=== PATIENT | male | born 1955 | race Two or more races ===

== ENCOUNTER 2024-11-29 20:41 | Inpatient (IN) | payer MEDICARE, OTHER ==
[~2024-11-29] VITALS: Ht 162.6 cm; Wt 68.0 kg
[2024-11-29 21:41] LABS: BASOPHILS % (AUTO) 0.3 % (0.0-2.0); EOSINOPHILS # (AUTO) 0.2 K/uL (0.0-0.7); EOSINOPHILS % (AUTO) 2.8 % (0.0-6.0); HEMATOCRIT 37 % (39-51); HEMOGLOBIN 12.8 g/dL (13.5-17.5); LYMPHOCYTES # (AUTO) 1.6 K/uL (0.8-4.8); LYMPHOCYTES % (AUTO) 30.6 % (20.0-44.0); MEAN CORPUSCULAR HEMOGLOBIN 31 PG (26.0-33.0); MEAN CORPUSCULAR HGB CONC 34 g/dl (31.0-36.0); MEAN CORPUSCULAR VOLUME 91 fL (80-96); MONOCYTES # (AUTO) 0.5 K/uL (0.1-1.30); MONOCYTES % (AUTO) 9.9 % (2.0-12.0); NEUTROPHILS % (AUTO) 56.4 % (43.0-81.0); PLATELET COUNT (AUTO) 163 K/uL (150-450); RED BLOOD CELL COUNT(AUTO) 4.08 MIL/uL (4.5-6.0); WHITE BLOOD COUNT (AUTO) 5.3 K/uL (4.3-11.0)
[2024-11-29 21:48] LABS: APPEARANCE,URINE CLEAR (CLEAR); BILIRUBIN,URINE NEGATIVE (NEGATIVE); BLOOD, URINE NEGATIVE Ery/uL (NEGATIVE); COLOR,URINE YELLOW (YELLOW); KETONES,URINE NEGATIVE (NEGATIVE); LEUKOCYTE ESTERASE ,URINE NEGATIVE (NEGATIVE); NITRITE, URINE NEGATIVE (NEGATIVE); PROTEIN,URINE NEGATIVE (NEGATIVE); UGLUCOSE NEGATIVE (NEGATIVE); UROBILINOGEN,URINE 0.2 EU/dL (0.2)
[2024-11-29 22:03] LABS: AMPHETAMINE, URINE NEGATIVE (NEGATIVE); BARBITURATE, URINE NEGATIVE (NEGATIVE); BENZODIAZEPINE, URINE NEGATIVE (NEGATIVE); CANNABINOID, URINE NEGATIVE (NEGATIVE); COCCAINE, URINE NEGATIVE (NEGATIVE); OPIATE, URINE NEGATIVE (NEGATIVE); PHENCYCLIDINE SCREEN,URINE NEGATIVE (NEGATIVE)
[2024-11-29 22:05] LABS: ALANINE AMINOTRANSFERASE 22 U/L (12-78); ALBUMIN 2.9 g/dL (3.4-5.0); ALCOHOL, BLOOD < 3 mg/dL (0-10); ALKALINE PHOSPHATASE 92 U/L (46-116); ASPARTATE AMINOTRANSFERASE 15 U/L (15-37); BILIRUBIN,DIRECT 0.1 mg/dL (0.0-0.2); BILIRUBIN,TOTAL 0.2 mg/dL (0.2-1.0); CALCIUM, SERUM 8.2 mg/dL (8.5-10.1); CARBON DIOXIDE 25 mmol/L (21-32); CHLORIDE 101 mmol/L (98-107); CREATININE 1.1 mg/dL (0.6-1.3); GLUCOSE 174 mg/dL (74-106); POTASSIUM 3.9 mmol/L (3.5-5.1); SALICYLATE 0.8 mg/dL (2.8-20.0); SODIUM SERUM 136 mmol/L (136-145); TOTAL PROTEIN, SERUM 6.3 g/dL (6.4-8.2); UREA NITROGEN, BLOOD 28 mg/dL (7-18)
[2024-11-29 22:06] LABS: ACETAMINOPHEN 0 ug/ml (10-30)
[2024-11-29 23:01] VITALS: O2SAT 99
[2024-11-30] MEDS ORDERED: CLOP75TA15 PO (00:30)
[2024-11-30] MEDS ORDERED: HYDR100T27 PO (00:30)
[2024-11-30] MEDS ORDERED: AMLO-212 PO (00:30)
[2024-11-30] MEDS ORDERED: GABA-532 PO (00:30)
[2024-11-30] MEDS ORDERED: BUSP5TAB3 PO (00:30)
[2024-11-30] MEDS ORDERED: LEVE500T20 PO (00:30)
[2024-11-30] MEDS ORDERED: CLON0.5T PO (00:30)
[2024-11-30] MEDS ORDERED: METO50TA16 PO (00:32)
[2024-11-30] MEDS ORDERED: INSU100V42 SQ (04:49)
[2024-11-30] MEDS ORDERED: INSU100V42 ×2 (04:49→04:54)
[2024-11-30] MEDS ORDERED: MAG HYDROX/AL HYDROX/SIMETH 30 ML UDC PO PRN (05:00)
[2024-11-30] MEDS ORDERED: ZOLPIDEM TARTRATE 5 MG TABLET PO PRN (05:00)
[2024-11-30] MEDS: BLOOD SUGAR DIAGNOSTIC 1 EACH STRIP IN ONE (05:48)
[2024-11-30 06:10] VITALS: BP 160/72; TEMP 98.6
[2024-11-30 07:48] LABS: BASOPHILS % (AUTO) 0.3 % (0.0-2.0); EOSINOPHILS # (AUTO) 0.1 K/uL (0.0-0.7); EOSINOPHILS % (AUTO) 1.9 % (0.0-6.0); HEMATOCRIT 42 % (39-51); HEMOGLOBIN 14.3 g/dL (13.5-17.5); LYMPHOCYTES # (AUTO) 1.1 K/uL (0.8-4.8); LYMPHOCYTES % (AUTO) 27.1 % (20.0-44.0); MEAN CORPUSCULAR HEMOGLOBIN 31 PG (26.0-33.0); MEAN CORPUSCULAR HGB CONC 34 g/dl (31.0-36.0); MEAN CORPUSCULAR VOLUME 90 fL (80-96); MONOCYTES # (AUTO) 0.4 K/uL (0.1-1.30); MONOCYTES % (AUTO) 8.8 % (2.0-12.0); NEUTROPHILS # (AUTO) 2.5 K/uL (1.8-8.9); NEUTROPHILS % (AUTO) 61.9 % (43.0-81.0); PLATELET COUNT (AUTO) 180 K/uL (150-450); RED BLOOD CELL COUNT(AUTO) 4.69 MIL/uL (4.5-6.0); WHITE BLOOD COUNT (AUTO) 4.1 K/uL (4.3-11.0)
[2024-11-30 07:56] LABS: ALBUMIN 3.5 g/dL (3.4-5.0); BILIRUBIN,TOTAL 0.5 mg/dL (0.2-1.0); CALCIUM, SERUM 8.5 mg/dL (8.5-10.1); CREATININE 0.9 mg/dL (0.6-1.3); POTASSIUM 3.7 mmol/L (3.5-5.1); TOTAL PROTEIN, SERUM 7.6 g/dL (6.4-8.2)
[2024-11-30 08:00] VITALS: BP 172/68; TEMP 98.7; O2SAT 98
[2024-11-30] MEDS: MAGNESIUM HYDROXIDE 30 ML UDC PO PRN (08:30)
[2024-11-30] MEDS: ACETAMINOPHEN 325 MG TABLET PO PRN (08:30)
[2024-11-30] MEDS ORDERED: ACET325T53 PO (09:14)
[2024-11-30] MEDS ORDERED: ACET-868 PO (09:14)
[2024-11-30] MEDS ORDERED: CHOL100043 PO (09:14)
[2024-11-30] MEDS ORDERED: BISA10SU11 RC (09:14)
[2024-11-30] MEDS ORDERED: ACET1TAB23 PO (09:14)
[2024-11-30] MEDS ORDERED: DOCU100C36 PO (09:14)
[2024-11-30] MEDS ORDERED: MAGN400T8 PO (09:14)
[2024-11-30] MEDS ORDERED: LOSA100T31 PO (09:14)
[2024-11-30] MEDS ORDERED: NA P133E RC (09:14)
[2024-11-30] MEDS ORDERED: ASCO500T21 PO (09:14)
[2024-11-30] MEDS ORDERED: SENN-261 PO (09:15)
[2024-11-30] MEDS ORDERED: IPRA3AMP23 IH (09:15)
[2024-11-30] MEDS ORDERED: AMIN30LI2 PO (09:15)
[2024-11-30] MEDS ORDERED: PANT40SU PO (09:15)
[2024-11-30] MEDS ORDERED: PIOG30TA10 PO (09:15)
[2024-11-30] MEDS ORDERED: MIRT7.5T10 PO (09:15)
[2024-11-30] MEDS ORDERED: OXCA300T15 PO (09:15)
[2024-11-30] MEDS ORDERED: CARB15DR LEFTEYE (09:15)
[2024-11-30] MEDS ORDERED: NUT.237L31 PO (09:15)
[2024-11-30] MEDS ORDERED: MULT-213 PO (09:15)
[2024-11-30] MEDS ORDERED: TAMS-12 PO (09:15)
[2024-11-30] MEDS ORDERED: MAGN400O6 PO (09:15)
[2024-11-30] MEDS ORDERED: MELA3TAB41 PO (09:15)
[2024-11-30 16:00] VITALS: BP 146/100; TEMP 98.1; O2SAT 98
[2024-11-30] MEDS: clonazePAM 0.5 MG TABLET PO SCH (18:35)
[2024-11-30] MEDS ORDERED: POLYVINYL ALCOHOL 15 ML BOTTLE LEFTEYE PRN (19:30)
[2024-11-30] MEDS ORDERED: ACETAMINOPHEN 325 MG TABLET PO PRN (19:30)
[2024-11-30] MEDS ORDERED: BISACODYL SUPP (10 MG) 10 MG/SUPP.RECT SUPP.RECT RC PRN (19:30)
[2024-11-30] MEDS ORDERED: NA PHOS,M-B/NA PHOS,DI-BA 1 EA ENEMA RC PRN (19:30)
[2024-11-30] MEDS ORDERED: DEXTROSE 50%-WATER 50 ML DISP.SYRIN IV PRN (19:30)
[2024-11-30] MEDS ORDERED: HOME MED MISCELLANEOUS XX SCH ×2 (19:30)
[2024-11-30] MEDS ORDERED: MAGNESIUM HYDROXIDE 30 ML UDC PO PRN (19:30)
[2024-11-30 20:19] VITALS: BP 150/76; TEMP 98.3; O2SAT 97
[2024-11-30] MEDS: QUETIAPINE FUMARATE 25 MG TABLET PO SCH (21:44)
[2024-11-30] MEDS: DIVALPROEX SODIUM 125 MG TABLET.DR PO SCH (21:44)
[2024-11-30] MEDS: BLOOD SUGAR DIAGNOSTIC 1 EACH STRIP IN SCH (21:45)
[2024-11-30] MEDS: SENNOSIDES 8.6 MG TABLET PO SCH (21:45)
[2024-11-30] MEDS: TAMSULOSIN 0.4 MG CAP.SR.24H PO SCH (21:45)
[2024-11-30] MEDS: LEVETIRACETAM (250 MG) 250 MG TABLET PO SCH (21:45)
[2024-11-30] MEDS: INSULIN REGULAR, HUMAN 100 UNIT/ML 3 ML VIAL SQ PRN (21:47)
[2024-12-01 08:00] VITALS: BP 161/86; TEMP 98.7; O2SAT 97
[2024-12-01] MEDS: PANTOPRAZOLE 40 MG/PACK PACK PO SCH (08:04)
[2024-12-01] MEDS: GLUCERNA 1.5 1,000 ML BOTTLE GT SCH (08:33)
[2024-12-01] MEDS: METOPROLOL TARTRATE 50 MG TABLET PO SCH (08:34)
[2024-12-01] MEDS: CLOPIDOGREL BISULFATE 75 MG TABLET PO SCH (08:34)
[2024-12-01] MEDS: ASCORBIC ACID 500 MG TABLET PO SCH (08:34)
[2024-12-01] MEDS: AMLODIPINE BESYLATE 5 MG TABLET PO SCH (08:34)
[2024-12-01] MEDS: MAGNESIUM OXIDE 400 MG TABLET PO SCH (08:34)
[2024-12-01] MEDS: GABAPENTIN 100 MG CAPSULE PO SCH (08:34)
[2024-12-01] MEDS: MULTIVITAMINS,THERAGRAN 1 UDTAB TABLET PO SCH (08:35)
[2024-12-01] MEDS: hydrALAZINE HCL 50 MG TABLET PO SCH (08:35)
[2024-12-01] MEDS: DOCUSATE SODIUM 100 MG CAPSULE PO SCH (08:35)
[2024-12-01] MEDS: LOSARTAN POTASSIUM 50 MG TABLET PO SCH (08:35)
[2024-12-01] MEDS: CHOLECALCIFEROL 1,000 UNIT TABLET (VIT D3) PO SCH (08:35)
[2024-12-01] MEDS: PIOGLITAZONE HCL 15 MG TABLET PO SCH (08:40)
[2024-12-01] MEDS: PROSOURCE / PROSTAT (PYXIS) 30 ML UDC PO SCH (08:42)
[2024-12-01] MEDS: GLUCERNA SHAKE 237 ML CAN PO SCH (12:54)
[2024-12-01 16:00] VITALS: BP 104/51; TEMP 98.7; O2SAT 99
[2024-12-01 20:00] VITALS: BP 138/92; TEMP 98.5; O2SAT 99
[2024-12-02 08:00] VITALS: BP 163/86; TEMP 98.1; O2SAT 98
[2024-12-02] MEDS: ACETAMINOPHEN 325 MG TABLET PO PRN (11:26)
[2024-12-02] MEDS: DIVALPROEX SODIUM 125 MG TABLET.DR PO SCH (14:14)
[2024-12-02 16:00] VITALS: BP 131/73; TEMP 97.5; O2SAT 96
[2024-12-02 20:31] VITALS: BP 134/79; TEMP 98.3; O2SAT 97
[2024-12-02] MEDS: QUETIAPINE FUMARATE 25 MG TABLET PO SCH (21:47)
[2024-12-02 22:00] VITALS: BP 134/79
[2024-12-02] MEDS: ACETAMINOPHEN W/ CODEINE#3 1 EA TABLET PO PRN (22:02)
[2024-12-03] MEDS ORDERED: Z GUARD REMEDY 4 OZ OINT TP PRN (06:00)
[2024-12-03 08:00] VITALS: BP 149/80; TEMP 97.7; O2SAT 95
[2024-12-03 09:00] VITALS: BP 149/80
[2024-12-03 10:00] VITALS: BP 149/80
[2024-12-03 16:00] VITALS: BP 107/60; TEMP 98; O2SAT 100
[2024-12-03 20:00] VITALS: BP 140/74; TEMP 98.3; O2SAT 98
[2024-12-03 22:15] VITALS: BP 140/74
[2024-12-04 08:00] VITALS: BP 146/79; TEMP 97.7; O2SAT 98
[2024-12-04 10:00] VITALS: BP 146/79
[2024-12-04] MEDS: QUETIAPINE FUMARATE 25 MG TABLET PO SCH (13:58)
[2024-12-04 16:00] VITALS: BP 139/83; TEMP 98.1; O2SAT 100
[2024-12-04 21:10] VITALS: BP 131/65; TEMP 98.2; O2SAT 99
[2024-12-04 22:04] VITALS: BP 131/65
[2024-12-05 08:00] VITALS: BP 142/82; TEMP 97.8; O2SAT 98
[2024-12-05 10:00] VITALS: BP 142/82
[2024-12-05 16:00] VITALS: BP 119/64; TEMP 98; O2SAT 99
[2024-12-05 20:15] VITALS: BP 141/73; TEMP 98.2; O2SAT 98
[2024-12-05 22:00] VITALS: BP 141/73
[2024-12-05] MEDS: DIVALPROEX SODIUM 125 MG TABLET.DR PO ONE (22:24)
[2024-12-05] MEDS: DIVALPROEX SODIUM 125 MG TABLET.DR PO SCH (22:27)
[2024-12-06 08:00] VITALS: BP 157/76; TEMP 97.9; O2SAT 98
[2024-12-06 10:00] VITALS: BP 157/76
[2024-12-06 15:13] VITALS: BP 106/68; TEMP 97.7; O2SAT 98
[2024-12-06 23:14] VITALS: BP 141/73
[2024-12-07 09:22] VITALS: BP 140/68; TEMP 98.7; O2SAT 99
[2024-12-07 10:00] VITALS: BP 157/76
[2024-12-07] MEDS: QUETIAPINE FUMARATE 25 MG TABLET PO SCH ×2 (14:09→21:21)
[2024-12-07 16:00] VITALS: BP 119/71; TEMP 97.9; O2SAT 99
[2024-12-07 20:00] VITALS: BP 137/77; TEMP 97.8; O2SAT 98
[2024-12-07 22:00] VITALS: BP 137/77
[2024-12-08 08:00] VITALS: BP 156/92; TEMP 98.7; O2SAT 100
[2024-12-08 10:00] VITALS: BP 156/92
[2024-12-08 16:00] VITALS: BP 123/66; TEMP 98; O2SAT 100
[2024-12-08 20:00] VITALS: BP 138/74; TEMP 98.4; O2SAT 98
[2024-12-08 22:00] VITALS: BP 156/92
[2024-12-09 08:00] VITALS: BP 154/74; TEMP 98; O2SAT 98
[2024-12-09 10:00] VITALS: BP 154/74
[2024-12-09] MEDS ORDERED: DIVALPROEX SODIUM 500 MG TABLET.DR PO SCH (14:00)
[2024-12-09] MEDS: DIVALPROEX SODIUM 125 MG CAP.SPRINK PO SCH (14:15)
[2024-12-09 16:00] VITALS: BP 106/68; TEMP 97.8; O2SAT 100
[2024-12-09 20:00] VITALS: BP 131/82; TEMP 98.1; O2SAT 100
[2024-12-10 08:00] VITALS: BP 153/85; TEMP 98.9; O2SAT 98
[2024-12-10 16:00] VITALS: BP 103/69; TEMP 97.7; O2SAT 99
[2024-12-10 19:58] VITALS: BP 126/71; TEMP 98.5; O2SAT 99
[2024-12-11 08:00] VITALS: BP 146/79; TEMP 97.7; O2SAT 98
[2024-12-11 16:00] VITALS: BP 130/77; TEMP 98; O2SAT 98
[2024-12-11 22:24] VITALS: BP 134/72; TEMP 98; O2SAT 98
[2024-12-12 08:00] VITALS: BP 145/85; TEMP 97.9; O2SAT 98
[2024-12-12 15:13] VITALS: BP 128/70; TEMP 97.8; O2SAT 99
[2024-12-12 20:42] VITALS: BP 127/73; TEMP 97.9; O2SAT 97
[2024-12-13 08:00] VITALS: BP 138/74; TEMP 97.9; O2SAT 98
[2024-12-13 08:18] VITALS: BP 138/74
== END 2024-12-13 13:20 | DRG 885 ==
LOC: ER 20:47 → GPS 22:28
PROVIDERS: ADMIT Psychiatry & Neurology Psychiatry; ATTEND Internal Medicine
DX: F31.9 Bipolar disorder, unspecified (principal); I11.0 Hypertensive heart disease with heart failure; F01.52 Vascular dementia, unspecified severity, with psychotic disturbance; F01.53 Vascular dementia, unspecified severity, with mood disturbance; I50.22 Chronic systolic (congestive) heart failure; G93.40 Encephalopathy, unspecified; F29 Unspecified psychosis not due to a substance or known physiological condition; G40.909 Epilepsy, unspecified, not intractable, without status epilepticus; E11.9 Type 2 diabetes mellitus without complications; K21.9 Gastro-esophageal reflux disease without esophagitis; I25.10 Atherosclerotic heart disease of native coronary artery without angina pectoris; N40.0 Benign prostatic hyperplasia without lower urinary tract symptoms; Z79.899 Other long term (current) drug therapy; E78.5 Hyperlipidemia, unspecified; I69.398 Other sequelae of cerebral infarction; R62.7 Adult failure to thrive; F39 Unspecified mood [affective] disorder; Z73.6 Limitation of activities due to disability; Z91.81 History of falling; I25.2 Old myocardial infarction; Z91.09 Other allergy status, other than to drugs and biological substances
CPT/HCPCS: 36415; 80048-TC; 80053-TC; 80061-TC; 80076-TC; 80164-TC; 82962-TC; 85025-TC; 97110-TC; 97112-TC; 97530-TC; G0480; J1815